=== PATIENT | female | born 1970 | race Caucasian/White ===

== ENCOUNTER → 2018-05-06 | Outpatient (CLI) | payer OTHER ==
--- NOTE | 2018-05-06 12:56 | RADIOLOGY REPORT (SQ) ---
EXAM DESCRIPTION: ANKLE LEFT AP/LATERAL COMPLETED DATE/TIME: 05/06/2018 12:47 pm REASON FOR STUDY: PAIN IN LEFT ANKLE AND JOINTS OF LEFT FOOT M25.572 PAIN IN LEFT ANKLE AND JOINTS OF LEFT FOOT Z00.00 [facility] FOR GENERAL ADULT MEDICAL EXAM W/O ABNORMAL FI COMPARISON: None. NUMBER OF VIEWS: Two views. TECHNIQUE: AP and lateral radiographic images acquired of the left ankle. LIMITATIONS: None. FINDINGS: MINERALIZATION: Normal. BONES: No acute fracture or dislocation. No worrisome bone lesions. JOINTS: No effusions. SOFT TISSUES: No soft tissue swelling. No foreign body. OTHER: No other significant finding. IMPRESSION: NEGATIVE STUDY OF THE LEFT ANKLE. NO RADIOGRAPHIC EVIDENCE OF ACUTE INJURY. TECHNICAL DOCUMENTATION: JOB ID: [id number] [employer]- All Rights Reserved Reading location - IP/workstation name: [facility]
[2018-05-06 12:57] LABS: ABSOLUTE BASOPHILS # (AUTO) 0.1 10^3/uL (0.0-0.2); ABSOLUTE EOSINOPHILS # (AUTO) 0.1 10^3/uL (0.0-0.6); ABSOLUTE LYMPHOCYTES (AUTO) 2.3 10^3/uL (0.5-4.7); ABSOLUTE MONOCYTES (AUTO) 0.6 10^3/uL (0.1-1.4); ABSOLUTE NEUT (AUTO) 5.8 10^3/uL (1.7-8.2); BASOPHILS % (AUTO) 0.7 % (0-2); EOSINOPHILS % (AUTO) 0.9 % (0-6); HEMATOCRIT 36.7 % (36.0-47.0); HEMOGLOBIN 12.7 g/dL (12.0-15.5); LYMPHOCYTES % (AUTO) 25.6 % (13-45); MEAN CORPUSCULAR HEMOGLOBIN 29.9 pg (27.0-33.4); MEAN CORPUSCULAR HGB CONC 34.6 g/dL (32.0-36.0); MEAN CORPUSCULAR VOLUME 86 fl (80-97); MONOCYTES % (AUTO) 6.7 % (3-13); PLATELET COUNT 300 10^3/uL (150-450); RED BLOOD COUNT 4.25 10^6/uL (3.72-5.28); RED CELL DISTRIBUTION WIDTH 12.3 % (11.5-14.0); SEGMENTED NEUTROPHILS % (AUTO) 66.1 % (42-78); TOTAL CELLS COUNTED % (AUTO) 100 %; WHITE BLOOD COUNT 8.8 10^3/uL (4.0-10.5)
[2018-05-06 13:22] LABS: ALANINE AMINOTRANSFERASE 14 U/L (9-52); ALBUMIN 4.4 g/dL (3.5-5.0); ALKALINE PHOSPHATASE 73 U/L (38-126); ANION GAP 9 (5-19); ASPARTATE AMINO TRANSFERASE 16 U/L (14-36); BILIRUBIN,DIRECT 0.2 mg/dL (0.0-0.4); BILIRUBIN,TOTAL 0.5 mg/dL (0.2-1.3); BLOOD UREA NITROGEN 10 mg/dL (7-20); CALCIUM 9.8 mg/dL (8.4-10.2); CARBON DIOXIDE 25 mmol/L (22-30); CHLORIDE 105 mmol/L (98-107); CHOLESTEROL 220.54 mg/dL (0-200); GLUCOSE 96 mg/dL (75-110); POTASSIUM 4.2 mmol/L (3.6-5.0); SODIUM 139.4 mmol/L (137-145); TOTAL PROTEIN 7.2 g/dL (6.3-8.2); TRIGLYCERIDES 75 mg/dL (<150)
[2018-05-06 13:33] LABS: DIRECT LDL 132 mg/dL (<100)
== END ==
LOC: CCC 11:42
DX: Z00.00 Encounter for general adult medical examination without abnormal findings (principal); M25.572 Pain in left ankle and joints of left foot
CPT/HCPCS: 36415; 80053; 80061; 83036; 84443; 85025

== ENCOUNTER 2018-05-09 00:43 | Emergency (ER) | payer SELFPAY ==
[2018-05-09 00:49] VITALS: BP 138/88
[2018-05-09] MEDS ORDERED: LORAZEPAM 1 MG TABLET PO ONE (01:03)
[2018-05-09] MEDS ORDERED: LIDOCAINE 2% INJ-PF (20 MG/ML) 10 ML AMPUL NEB ONE (01:03)
--- NOTE | 2018-05-09 01:10 | ER Document Report ---
ED General - General Chief Complaint: Allergic Reaction Stated Complaint: THROAT SWELLING Time Seen by Provider: 05/09/18 00:56 Notes: Patient is a 47-year-old female with a past medical history of anxiety, presents complaining of throat tightness, hand and feet tingling and feeling like there is something stuck in her throat. Patient states that her symptoms started several hours ago and have been relatively unchanged since onset. She did try taking Benadryl without any improvement of her symptoms. Denies a history of feeling like she has been choking in the past but does have a history of panic attacks. No obvious trigger for today's symptoms. Has no history of allergic reactions and no known allergies. She has not seen her general physician regarding today's concerns. Symptoms have not progressed since onset. She denies any difficulty swallowing or any distinct shortness of breath. TRAVEL OUTSIDE OF THE [place] IN LAST 30 DAYS: No Past Medical History - General Information source: Patient - Social History Smoking Status: Never Smoker Frequency of alcohol use: None Drug Abuse: None Lives with: Spouse/Significant other Family History: Reviewed & Not Pertinent Review of Systems - Review of Systems Notes: Constitutional: Negative for fever. HENT: Positive for throat tightness Eyes: Negative for visual changes. Cardiovascular: Negative for chest pain. Respiratory: Negative for shortness of breath. Gastrointestinal: Negative for abdominal pain, vomiting or diarrhea. Genitourinary: Negative for dysuria. Musculoskeletal: Negative for back pain. Skin: Negative for rash. Neurological: Negative for headaches, positive for paresthesias in the hands and feet 10 point ROS negative except as marked above and in HPI. Physical Exam - Vital signs Vitals: Temp Pulse Resp BP Pulse Ox 97.7 F 89 14 138/88 H 100 05/09/18 00:47 05/09/18 00:47 05/09/18 00:47 05/09/18 00:47 05/09/18 00:47 Interpretation: Normal Notes: PHYSICAL EXAMINATION: GENERAL: Well-appearing, well-nourished and in no acute distress. HEAD: Atraumatic, normocephalic. EYES: Pupils equal round and reactive to light, extraocular movements intact, sclera anicteric, conjunctiva are normal. ENT: nares patent, oropharynx clear without exudates. Moist mucous membranes. NECK: Normal range of motion, supple without lymphadenopathy, no stridor LUNGS: Breath sounds clear to auscultation bilaterally and equal. No wheezes rales or rhonchi. HEART: Regular rate and rhythm without murmurs ABDOMEN: Soft, nontender, normoactive bowel sounds. No guarding, no rebound. No masses appreciated. EXTREMITIES: Normal range of motion, no pitting or edema. No cyanosis. NEUROLOGICAL: No focal neurological deficits. Moves all extremities spontaneously and on command. PSYCH: Moderately anxious SKIN: Warm, Dry, normal turgor, no rashes or lesions noted. Course - Re-evaluation Re-evalutation: 05/09/18 01:10 Patient presents with signs and symptoms that appear to be most consistent with acute panic attack. The patient has no clinical symptomatology or physical exam findings to support a diagnosis of an acute allergic reaction. She has no ur ticaria, no nausea, no vomiting, no abdominal cramping. Airway is widely patent. No stridor. No difficulty swallowing, no wheezing. Patient does support multiple features for panic attack including paresthesias of the hands, feet and perioral areas as well as admitting to feeling quite anxious. History, vitals do not support a diagnosis of bacterial tracheitis or epiglottitis. Will treat with nebulized lidocaine, lorazepam p.o. and reassess 05/09/18 02:11 Patient is continued to appear well, repeat exam without any wheezing, stridor, handling his oral secretions without any difficulty and appears in no distress of any kind. Patient declines a GI cocktail. Patient also declines x-ray of the neck which I do think we have very low probability showing any acute pathology given the absence of any physical examination findings. Patient continues to state "it just feels a little weird but I feel fine and if you cannot hear or see anything I would like to just go home". At this time will discharge with return precautions and follow-up recommendations. Verbal discharge instructions given a the bedside and opportunity for questions given. Medication warnings reviewed. Patient is in agreement with this plan and has verbalized understanding of return precautions and the need for primary care follow-up in the next 24-72 hours. - Vital Signs Vital signs: Temp Pulse Resp BP Pulse Ox 97.7 F 89 14 138/88 H 100 05/09/18 00:47 05/09/18 00:47 05/09/18 00:47 05/09/18 00:47 05/09/18 00:47 Discharge - Discharge Clinical Impression: Sensation of swollen throat Condition: Good Disposition: HOME, SELF-CARE Additional Instructions: Your vitals, exam and overall presentation are reassuring today. The exact cause of your symptoms is uncertain and therefore you should have a very low threshold to return to the emergency department if you have any progression of the sensation of swelling or tightness in your throat, develop shortness of breath, have difficulty swallowing, develop a fever of greater than 100.4 F, or have any other symptoms that are worrisome to you. Please follow-up with your primary care physician within the next 24-48 hours. Referrals: [facility] [Primary Care Provider] - Follow up as needed
[2018-05-09] MEDS ORDERED: METOCLOPRAMIDE HCL ORAL SOLN 10 MG/10 ML UDCUP PO ONE (02:02)
[2018-05-09] MEDS ORDERED: LIDOCAINE 2% VISCOUS SOLN 20 ML UDCUP PO ONE (02:02)
[2018-05-09] MEDS ORDERED: MAG HYDROX/AL HYDROX/SIMETH SUSP 30 ML UDCUP PO ONE (02:02)
== END 2018-05-09 02:10 | disposition home or self-care (01) ==
LOC: ER 00:43
DX: R09.89 Other specified symptoms and signs involving the circulatory and respiratory systems (principal); R20.2 Paresthesia of skin
CPT/HCPCS: 94640; 99283; J3490